=== PATIENT | male | born 1950 | race African-American/Black ===

== ENCOUNTER 2020-09-09 04:06 | Emergency (ER) | payer OTHER ==
[2020-09-09] MEDS ORDERED: ONDANSETRON *ODT* 4 MG TABLET SL ONE (04:27)
[2020-09-09] MEDS ORDERED: MAG HYDROX/AL HYDROX/SIMETH 30 ML UNIT-DOSE CUP PO ONE (04:27)
[2020-09-09] MEDS ORDERED: FAMOTIDINE 10 MG TABLET PO ONE (04:27)
[2020-09-09 04:31] VITALS: BP 160/75; PULSE 72; TEMP 98.8; BMI 26.6
[2020-09-09] MEDS ORDERED: FAMOTIDINE 10 MG TABLET ONE (04:38)
[2020-09-09] MEDS ORDERED: ONDANSETRON *ODT* 4 MG TABLET ONE (04:38)
[2020-09-09] MEDS ORDERED: MAG HYDROX/AL HYDROX/SIMETH 30 ML UNIT-DOSE CUP ONE (04:39)
== END 2020-09-09 04:59 | disposition home or self-care (01) ==
LOC: JER 04:06
DX: F11.20 Opioid dependence, uncomplicated (principal)
CPT/HCPCS: 99283-25; Q0162

== ENCOUNTER 2020-10-05 14:07 | Emergency (ER) | payer OTHER ==
[2020-10-05 14:29] VITALS: BP 133/79; PULSE 64; TEMP 98.8; BMI 26.5
== END 2020-10-05 16:47 | disposition left against medical advice (07) ==
LOC: JER 14:07
DX: F11.90 Opioid use, unspecified, uncomplicated (principal)
CPT/HCPCS: 99283-25

== ENCOUNTER 2022-11-21 10:39 | Inpatient (IN) | payer OTHER ==
[2022-11-21 11:20] LABS: BASO % 0.9 % (0-2.0); EOS % 0.8 % (0-4.5); HEMATOCRIT 36.1 % (35.4-49); HEMOGLOBIN 11.8 GM/dL (11.7-16.9); LYMPH % 9.4 % (8-40); MCHC 32.7 g/dl (32.0-35.9); MEAN CELL VOLUME 79.5 fl (80-96); MEAN PLT VOLUME 6.5 fl (7.5-11.1); MONO % 6.6 % (3.8-10.2); NEUT % 82.3 % (42.8-82.8); PLATELET COUNT 352 10^3/uL (134-434); RBC 4.54 M/mm3 (4.00-5.60); WHITE BLOOD COUNT 12.8 K/mm3 (4.0-10.0)
[2022-11-21 11:39] LABS: INR 1.09 (0.83-1.09); PROTHROMBIN TIME (PATIENT) 12.6 SEC (9.7-13.0)
[2022-11-21 11:42] LABS: ACTIVATED PTT 24.8 SECONDS (25.2-36.5)
[2022-11-21 11:47] LABS: POTASSIUM 4.9 mmol/L (3.5-5.1)
[2022-11-21 11:49] LABS: ALBUMIN 3.4 g/dl (3.4-5.0)
[2022-11-21 11:51] LABS: BLOOD UREA NITROGEN 53.2 mg/dL (7-18); CALCIUM 9.5 mg/dL (8.5-10.1); MAGNESIUM 2.5 mg/dL (1.8-2.4)
[2022-11-21 11:53] LABS: CREATININE 2.6 mg/dL (0.55-1.3)
[2022-11-21 11:54] LABS: BILIRUBIN,TOTAL 0.4 mg/dL (0.2-1)
[2022-11-21 11:58] LABS: N-TERMINAL BNP 1714.6 pg/ml (5-125)
[2022-11-21] MEDS ORDERED: ACETAMINOPHEN INJECTION 100 ML IVPB ONE (12:04)
[2022-11-21] MEDS ORDERED: ACETAMINOPHEN 1000 MG/100 ML BAG IVPB ONE (12:05)
[2022-11-21] MEDS ORDERED: HEPARIN NA (PORCINE) 5,000 UNITS/ML 1ML VIAL IVPUSH PRN ×2 (13:30)
[2022-11-21] MEDS ORDERED: HEPARIN INFUSION - 25,000 UNITS/500 ML INFUS.BAG IVPB ONE (14:22)
[2022-11-21] MEDS: HEPARIN INFUSION - 25,000 UNITS/500 ML INFUS.BAG IVPB SCH (14:30)
[2022-11-21] MEDS ORDERED: SODIUM CHLORIDE 1,000 ML IV SCH (16:00)
[2022-11-21] MEDS ORDERED: oxyCODONE HCL 5 MG TABLET ONE (17:21)
[2022-11-21] MEDS: oxyCODONE HCL 5 MG TABLET PO PRN ×2 (17:24→23:07)
[2022-11-21 17:39] LABS: EPI CELLS 3 /uL (0-25.1); HYALINE CASTS 0 /uL (0-3.1); PH,URINE 5.5 (5.0-8.0); URINE APPEARANCE CLEAR; URINE BACTERIA 70 /uL (0-1359); URINE BILIRUBIN NEGATIVE (NEGATIVE); URINE COLOR YELLOW; URINE GLUCOSE (UA) 3+ (NEGATIVE); URINE KETONE NEGATIVE (NEGATIVE); URINE LEUK ESTERASE NEGATIVE (NEGATIVE); URINE NITRITE NEGATIVE (NEGATIVE); URINE PROTEIN 2+ (NEGATIVE); URINE RBC 15 /uL (0-23.9); URINE WBC 4 /uL (0-25.8)
[2022-11-21 17:44] LABS: COCAINE, UR NEGATIVE (NEGATIVE); PHENCYCLIDINE,URINE NEGATIVE (NEGATIVE); URINE AMPHETAMINES NEGATIVE (NEGATIVE); URINE BARBITURATES NEGATIVE (NEGATIVE); URINE BENZODIAZEPINES NEGATIVE (NEGATIVE)
[2022-11-21 17:54] LABS: METHADONE, UR POSITIVE (NEGATIVE); OPIATES, URI POSITIVE (NEGATIVE)
[2022-11-21] MEDS ORDERED: NIFEdipine E.R 60 MG TABLET PO ONE (19:11)
[2022-11-21] MEDS ORDERED: NIFEdipine E.R. 30 MG TABLET PO ONE (19:11)
[2022-11-21] MEDS: NIFEdipine E.R. 90 MG TABLET PO SCH (19:14)
[2022-11-22] MEDS ORDERED: LIDOCAINE 5% TOPICAL PATCH TP ONE (03:30)
[2022-11-22] MEDS: oxyCODONE HCL 5 MG TABLET PO PRN ×3 (05:46→23:21)
[2022-11-22 08:45] LABS: BASO % 0.8 % (0-2.0); EOS % 0.2 % (0-4.5); HEMATOCRIT 35.7 % (35.4-49); HEMOGLOBIN 11.6 GM/dL (11.7-16.9); LYMPH % 10.3 % (8-40); MCH 25.9 pg (25.7-33.7); MCHC 32.6 g/dl (32.0-35.9); MEAN CELL VOLUME 79.5 fl (80-96); MONO % 5.2 % (3.8-10.2); NEUT % 83.5 % (42.8-82.8); PLATELET COUNT 419 10^3/uL (134-434); RBC 4.49 M/mm3 (4.00-5.60); RDW 15.6 % (11.9-15.9); WHITE BLOOD COUNT 11.7 K/mm3 (4.0-10.0)
[2022-11-22] MEDS: NIFEdipine E.R. 90 MG TABLET PO SCH (10:40)
[2022-11-22 12:17] LABS: POTASSIUM 4.6 mmol/L (3.5-5.1)
[2022-11-22 13:14] LABS: MAGNESIUM 2.4 mg/dL (1.8-2.4)
[2022-11-22 13:15] LABS: BLOOD UREA NITROGEN 45.4 mg/dL (7-18)
[2022-11-22 13:16] LABS: ALBUMIN 3.2 g/dl (3.4-5.0)
[2022-11-22 13:18] LABS: CREATININE 2.3 mg/dL (0.55-1.3); PHOSPHOROUS 4.3 mg/dL (2.5-4.9)
[2022-11-22 13:20] LABS: BILIRUBIN,TOTAL 0.5 mg/dL (0.2-1); TOT PROT 7.2 g/dl (6.4-8.2)
[2022-11-22] MEDS: HEPARIN INFUSION - 25,000 UNITS/500 ML INFUS.BAG IVPB SCH ×2 (13:58→17:07)
[2022-11-22] MEDS ORDERED: LIDOCAINE PATCH REMOVAL MC ONE (15:00)
[2022-11-22] MEDS ORDERED: FENTANYL CITRATE/PF 50 MCG/ML VIAL ONE (15:54)
[2022-11-22] MEDS ORDERED: FENTANYL CITRATE/PF 50 MCG/ML VIAL IVPUSH ONE ×2 (16:45→19:00)
[2022-11-22] MEDS ORDERED: SODIUM CHLORIDE 500 ML IV ONE (16:45)
[2022-11-22] MEDS ORDERED: ACETAMINOPHEN 1000 MG/100 ML BAG IVPB ONE (16:55)
[2022-11-23] MEDS: oxyCODONE HCL 5 MG TABLET PO PRN ×2 (04:02→17:28)
[2022-11-23] MEDS ORDERED: methaDONE HCL 10 MG TABLET PO SCH (06:00)
[2022-11-23 08:02] LABS: HEMOGLOBIN 11.7 GM/dL (11.7-16.9); MCH 26.2 pg (25.7-33.7); MCHC 33.4 g/dl (32.0-35.9); MEAN CELL VOLUME 78.5 fl (80-96); MEAN PLT VOLUME 6.5 fl (7.5-11.1); PLATELET COUNT 463 10^3/uL (134-434); RBC 4.46 M/mm3 (4.00-5.60); RDW 15.4 % (11.9-15.9); WHITE BLOOD COUNT 11.8 K/mm3 (4.0-10.0)
[2022-11-23 08:09] LABS: INR 1.05 (0.83-1.09); PROTHROMBIN TIME (PATIENT) 12.2 SEC (9.7-13.0)
[2022-11-23 08:22] LABS: POTASSIUM 4.7 mmol/L (3.5-5.1)
[2022-11-23 08:29] LABS: PHOSPHOROUS 4.3 mg/dL (2.5-4.9)
[2022-11-23 08:30] LABS: ALBUMIN 3.1 g/dl (3.4-5.0); BILIRUBIN,TOTAL 0.4 mg/dL (0.2-1); TOT PROT 7.4 g/dl (6.4-8.2)
[2022-11-23 08:33] LABS: BLOOD UREA NITROGEN 42.2 mg/dL (7-18); CREATININE 2.2 mg/dL (0.55-1.3)
[2022-11-23 08:34] LABS: CALCIUM 9.1 mg/dL (8.5-10.1)
[2022-11-23 08:35] LABS: MAGNESIUM 2.3 mg/dL (1.8-2.4)
[2022-11-23] MEDS ORDERED: PIPERACILLIN/TAZOB 3.375 GM 3.375 GM in DEXTROSE 5%-WATER - 50 ML IVPB SCH (09:00)
[2022-11-23] MEDS: NIFEdipine E.R. 90 MG TABLET PO SCH (09:45)
[2022-11-23] MEDS ORDERED: ONDANSETRON 4 MG/2 ML VIAL IVPUSH PRN ×2 (11:54→13:44)
[2022-11-23] MEDS ORDERED: MIDAZOLAM HCL 2 MG/2 ML SINGLE DOSE VIAL ONE (12:23)
[2022-11-23] MEDS ORDERED: PROPOFOL 20 ML ONE (12:23)
[2022-11-23] MEDS ORDERED: LIDOCAINE HCL/PF 2% SDV 5ML VIAL ONE (12:23)
[2022-11-23] MEDS ORDERED: HYDROmorphone HCl 2 MG/ML VIAL ONE (12:54)
[2022-11-23] MEDS ORDERED: LIDOCAINE HCL 1%, 10 MG/ML (20ML VIAL) INF ONE ×3 (12:58)
[2022-11-23] MEDS ORDERED: BUPIVACAINE HCL/PF 0.5% (5 MG/ML) 30 ML VIAL IJ ONE ×3 (12:58)
[2022-11-23] MEDS ORDERED: ONDANSETRON 4 MG/2 ML VIAL ONE (13:03)
[2022-11-23] MEDS ORDERED: HEPARIN NA (PORCINE) 5,000 UNITS/ML 1ML VIAL IVPUSH PRN ×3 (13:44)
[2022-11-23] MEDS: LACTATED RINGERS SOLUTION 1,000 ML IV SCH (16:02)
[2022-11-23] MEDS: HEPARIN INFUSION - 25,000 UNITS/500 ML INFUS.BAG IVPB SCH (17:34)
[2022-11-23] MEDS ORDERED: ACETAMINOPHEN 1000 MG/100 ML BAG IVPB ONE (20:52)
[2022-11-24] MEDS: HEPARIN NA (PORCINE) 5,000 UNITS/ML 1ML VIAL IVPUSH PRN ×2 (00:52→16:31)
[2022-11-24] MEDS: oxyCODONE HCL 5 MG TABLET PO PRN ×2 (00:54→14:34)
[2022-11-24] MEDS: LACTATED RINGERS SOLUTION 1,000 ML IV SCH ×3 (06:09→19:44)
[2022-11-24] MEDS: methaDONE HCL 10 MG TABLET PO SCH (06:11)
[2022-11-24 07:25] LABS: HEMATOCRIT 32.4 % (35.4-49); HEMOGLOBIN 10.8 GM/dL (11.7-16.9); MCH 26.1 pg (25.7-33.7); MCHC 33.4 g/dl (32.0-35.9); MEAN CELL VOLUME 78.1 fl (80-96); MEAN PLT VOLUME 6.4 fl (7.5-11.1); PLATELET COUNT 436 10^3/uL (134-434); RBC 4.14 M/mm3 (4.00-5.60); RDW 15.3 % (11.9-15.9); WHITE BLOOD COUNT 11.2 K/mm3 (4.0-10.0)
[2022-11-24 08:37] LABS: ALBUMIN 2.8 g/dl (3.4-5.0); BILIRUBIN,TOTAL 0.4 mg/dL (0.2-1); BLOOD UREA NITROGEN 33.1 mg/dL (7-18); CALCIUM 8.8 mg/dL (8.5-10.1); CREATININE 1.9 mg/dL (0.55-1.3); MAGNESIUM 2.1 mg/dL (1.8-2.4); PHOSPHOROUS 3.8 mg/dL (2.5-4.9); POTASSIUM 4.4 mmol/L (3.5-5.1); TOT PROT 6.6 g/dl (6.4-8.2)
[2022-11-24] MEDS: NIFEdipine E.R. 90 MG TABLET PO SCH (09:31)
[2022-11-24] MEDS: HEPARIN INFUSION - 25,000 UNITS/500 ML INFUS.BAG IVPB SCH ×2 (09:59→14:27)
[2022-11-24] MEDS: POLYETHYLENE GLYCOL (HEALTHYLAX) 3350 17 GM PACKET PO SCH (14:36)
[2022-11-24] MEDS ORDERED: ACETAMINOPHEN 1000 MG/100 ML BAG IVPB ONE (18:39)
[2022-11-25] MEDS: oxyCODONE HCL 5 MG TABLET PO PRN ×3 (01:14→14:56)
[2022-11-25] MEDS ORDERED: ACETAMINOPHEN 1000 MG/100 ML BAG IVPB ONE (04:38)
[2022-11-25] MEDS: methaDONE HCL 10 MG TABLET PO SCH (05:53)
[2022-11-25 07:53] LABS: HEMOGLOBIN 10.5 GM/dL (11.7-16.9); MCH 25.3 pg (25.7-33.7); MCHC 31.8 g/dl (32.0-35.9); MEAN CELL VOLUME 79.4 fl (80-96); MEAN PLT VOLUME 6.5 fl (7.5-11.1); PLATELET COUNT 461 10^3/uL (134-434); RBC 4.16 M/mm3 (4.00-5.60); RDW 15.5 % (11.9-15.9)
[2022-11-25 07:59] LABS: POTASSIUM 4.1 mmol/L (3.5-5.1)
[2022-11-25 08:03] LABS: CALCIUM 8.6 mg/dL (8.5-10.1)
[2022-11-25 08:04] LABS: ALBUMIN 2.8 g/dl (3.4-5.0); BLOOD UREA NITROGEN 24.4 mg/dL (7-18); MAGNESIUM 1.8 mg/dL (1.8-2.4)
[2022-11-25 08:07] LABS: BILIRUBIN,TOTAL 0.4 mg/dL (0.2-1); CREATININE 1.6 mg/dL (0.55-1.3); PHOSPHOROUS 3.4 mg/dL (2.5-4.9); TOT PROT 6.4 g/dl (6.4-8.2)
[2022-11-25] MEDS: NIFEdipine E.R. 90 MG TABLET PO SCH (09:38)
[2022-11-25] MEDS: POLYETHYLENE GLYCOL (HEALTHYLAX) 3350 17 GM PACKET PO SCH (09:39)
[2022-11-25] MEDS: HEPARIN INFUSION - 25,000 UNITS/500 ML INFUS.BAG IVPB SCH ×2 (09:41→14:22)
[2022-11-25] MEDS: LACTATED RINGERS SOLUTION 1,000 ML IV SCH ×2 (09:47→14:55)
[2022-11-25] MEDS ORDERED: NALOXONE HCL 0.4 MG/ML VIAL ONE (21:23)
[2022-11-25] MEDS ORDERED: NALOXONE HCL 0.4 MG/ML VIAL IVPUSH PRN (21:27)
[2022-11-26] MEDS: methaDONE HCL 10 MG TABLET PO SCH (06:04)
[2022-11-26] MEDS: LACTATED RINGERS SOLUTION 1,000 ML IV SCH ×2 (06:04→14:40)
[2022-11-26 07:56] LABS: HEMATOCRIT 31.8 % (35.4-49); HEMOGLOBIN 10.2 GM/dL (11.7-16.9); MCH 25.8 pg (25.7-33.7); MCHC 31.9 g/dl (32.0-35.9); MEAN CELL VOLUME 80.6 fl (80-96); MEAN PLT VOLUME 6.6 fl (7.5-11.1); PLATELET COUNT 463 10^3/uL (134-434); RBC 3.95 M/mm3 (4.00-5.60); WHITE BLOOD COUNT 12.1 K/mm3 (4.0-10.0)
[2022-11-26 08:11] LABS: POTASSIUM 4.4 mmol/L (3.5-5.1)
[2022-11-26 08:16] LABS: BLOOD UREA NITROGEN 23.4 mg/dL (7-18); CALCIUM 8.9 mg/dL (8.5-10.1)
[2022-11-26 08:18] LABS: ALBUMIN 2.8 g/dl (3.4-5.0); MAGNESIUM 1.7 mg/dL (1.8-2.4)
[2022-11-26 08:21] LABS: BILIRUBIN,TOTAL 0.5 mg/dL (0.2-1); CREATININE 1.7 mg/dL (0.55-1.3); TOT PROT 6.6 g/dl (6.4-8.2)
[2022-11-26] MEDS: HEPARIN INFUSION - 25,000 UNITS/500 ML INFUS.BAG IVPB SCH ×2 (08:35→14:40)
[2022-11-26] MEDS: NIFEdipine E.R. 90 MG TABLET PO SCH (09:53)
[2022-11-26] MEDS: POLYETHYLENE GLYCOL (HEALTHYLAX) 3350 17 GM PACKET PO SCH (09:53)
[2022-11-26] MEDS ORDERED: ACETAMINOPHEN 1000 MG/100 ML BAG IVPB ONE (13:04)
[2022-11-26] MEDS ORDERED: MAGNESIUM SULF 50% (8.12 MEQ/2 ML-1 GM VIAL) IVPB ONE (18:30)
[2022-11-26] MEDS: oxyCODONE HCL 5 MG TABLET PO PRN (21:46)
[2022-11-27] MEDS: LACTATED RINGERS SOLUTION 1,000 ML IV SCH ×2 (05:12→17:04)
[2022-11-27] MEDS: methaDONE HCL 10 MG TABLET PO SCH (05:12)
[2022-11-27] MEDS: oxyCODONE HCL 5 MG TABLET PO PRN ×2 (05:42→18:49)
[2022-11-27 07:10] LABS: HEMATOCRIT 33.8 % (35.4-49); HEMOGLOBIN 11.1 GM/dL (11.7-16.9); MCH 25.7 pg (25.7-33.7); MCHC 32.9 g/dl (32.0-35.9); MEAN PLT VOLUME 6.1 fl (7.5-11.1); PLATELET COUNT 486 10^3/uL (134-434); RBC 4.34 M/mm3 (4.00-5.60); RDW 15.6 % (11.9-15.9); WHITE BLOOD COUNT 12.7 K/mm3 (4.0-10.0)
[2022-11-27 07:17] LABS: INR 1.09 (0.83-1.09); PROTHROMBIN TIME (PATIENT) 12.6 SEC (9.7-13.0)
[2022-11-27 07:45] LABS: POTASSIUM 4.4 mmol/L (3.5-5.1)
[2022-11-27 07:50] LABS: CALCIUM 8.7 mg/dL (8.5-10.1)
[2022-11-27 07:52] LABS: ALBUMIN 2.9 g/dl (3.4-5.0); BLOOD UREA NITROGEN 23.5 mg/dL (7-18); MAGNESIUM 2.4 mg/dL (1.8-2.4)
[2022-11-27 07:54] LABS: CREATININE 1.6 mg/dL (0.55-1.3)
[2022-11-27 07:55] LABS: BILIRUBIN,TOTAL 0.4 mg/dL (0.2-1); TOT PROT 6.6 g/dl (6.4-8.2)
[2022-11-27 07:59] LABS: PHOSPHOROUS 3.7 mg/dL (2.5-4.9)
[2022-11-27] MEDS: POLYETHYLENE GLYCOL (HEALTHYLAX) 3350 17 GM PACKET PO SCH (10:05)
[2022-11-27] MEDS: NIFEdipine E.R. 90 MG TABLET PO SCH (10:05)
[2022-11-27] MEDS ORDERED: ACETAMINOPHEN 1000 MG/100 ML BAG IVPB ONE (10:07)
[2022-11-28] MEDS: oxyCODONE HCL 5 MG TABLET PO PRN ×3 (05:30→22:31)
[2022-11-28] MEDS: methaDONE HCL 10 MG TABLET PO SCH (05:31)
[2022-11-28] MEDS: POLYETHYLENE GLYCOL (HEALTHYLAX) 3350 17 GM PACKET PO SCH (09:25)
[2022-11-28] MEDS: NIFEdipine E.R. 90 MG TABLET PO SCH (09:26)
[2022-11-28] MEDS: LACTATED RINGERS SOLUTION 1,000 ML IV SCH ×2 (09:29→17:43)
[2022-11-28 09:35] LABS: HEMATOCRIT 33.3 % (35.4-49); MCH 25.9 pg (25.7-33.7); MCHC 33.1 g/dl (32.0-35.9); MEAN CELL VOLUME 78.4 fl (80-96); MEAN PLT VOLUME 6.4 fl (7.5-11.1); PLATELET COUNT 506 10^3/uL (134-434); RBC 4.25 M/mm3 (4.00-5.60); RDW 15.8 % (11.9-15.9); WHITE BLOOD COUNT 13.5 K/mm3 (4.0-10.0)
[2022-11-28 10:08] LABS: POTASSIUM 4.5 mmol/L (3.5-5.1)
[2022-11-28 10:11] LABS: BLOOD UREA NITROGEN 23.9 mg/dL (7-18); MAGNESIUM 2.3 mg/dL (1.8-2.4)
[2022-11-28 10:14] LABS: CREATININE 1.6 mg/dL (0.55-1.3); PHOSPHOROUS 4.1 mg/dL (2.5-4.9)
[2022-11-28 10:15] LABS: BILIRUBIN,TOTAL 0.5 mg/dL (0.2-1)
[2022-11-28 10:16] LABS: TOT PROT 6.9 g/dl (6.4-8.2)
[2022-11-28] MEDS: LIDOCAINE 5% TOPICAL PATCH TP SCH (17:39)
[2022-11-28] MEDS: APIXABAN 5 MG TABLET PO SCH (22:31)
[2022-11-28] MEDS: LIDOCAINE PATCH REMOVAL MC SCH (22:34)
[2022-11-29] MEDS: LACTATED RINGERS SOLUTION 1,000 ML IV SCH (05:42)
[2022-11-29] MEDS: methaDONE HCL 10 MG TABLET PO SCH (05:43)
[2022-11-29 08:31] LABS: HEMATOCRIT 32.9 % (35.4-49); MCH 25.8 pg (25.7-33.7); MCHC 33.3 g/dl (32.0-35.9); MEAN CELL VOLUME 77.5 fl (80-96); MEAN PLT VOLUME 6.2 fl (7.5-11.1); PLATELET COUNT 532 10^3/uL (134-434); RBC 4.25 M/mm3 (4.00-5.60); RDW 15.7 % (11.9-15.9)
[2022-11-29] MEDS: NIFEdipine E.R. 90 MG TABLET PO SCH (09:59)
[2022-11-29] MEDS: APIXABAN 5 MG TABLET PO SCH ×2 (09:59→22:08)
[2022-11-29] MEDS: POLYETHYLENE GLYCOL (HEALTHYLAX) 3350 17 GM PACKET PO SCH (10:02)
[2022-11-29] MEDS: LIDOCAINE 5% TOPICAL PATCH TP SCH (10:03)
[2022-11-29] MEDS: LIDOCAINE PATCH REMOVAL MC SCH (22:10)
[2022-11-29 22:56] VITALS: BMI 24.4
[2022-11-30 07:55] LABS: POTASSIUM 4.4 mmol/L (3.5-5.1)
[2022-11-30 08:02] LABS: BLOOD UREA NITROGEN 21.9 mg/dL (7-18)
[2022-11-30 08:04] LABS: BILIRUBIN,TOTAL 0.5 mg/dL (0.2-1); CREATININE 1.5 mg/dL (0.55-1.3); PHOSPHOROUS 3.8 mg/dL (2.5-4.9)
[2022-11-30 08:05] LABS: HEMATOCRIT 35.4 % (35.4-49); HEMOGLOBIN 11.3 GM/dL (11.7-16.9); MCH 25.6 pg (25.7-33.7); MCHC 31.8 g/dl (32.0-35.9); MEAN CELL VOLUME 80.7 fl (80-96); MEAN PLT VOLUME 6.6 fl (7.5-11.1); PLATELET COUNT 547 10^3/uL (134-434); RBC 4.39 M/mm3 (4.00-5.60); RDW 15.7 % (11.9-15.9); WHITE BLOOD COUNT 14.7 K/mm3 (4.0-10.0)
[2022-11-30] MEDS: NIFEdipine E.R. 90 MG TABLET PO SCH (09:51)
[2022-11-30] MEDS: APIXABAN 5 MG TABLET PO SCH (09:51)
[2022-11-30] MEDS: POLYETHYLENE GLYCOL (HEALTHYLAX) 3350 17 GM PACKET PO SCH (09:53)
[2022-11-30] MEDS: LIDOCAINE 5% TOPICAL PATCH TP SCH (09:53)
[2022-11-30 15:35] VITALS: BP 148/69; PULSE 78; RESP 22; TEMP 98.2
== END 2022-11-30 16:59 | disposition home or self-care (01) | DRG 312 ==
LOC: JER 10:39 → JERBED 14:28 → J4W 21:02
PROVIDERS: ADMIT Internal Medicine; ATTEND Internal Medicine
PROC: 06H03DZ Insertion of Intraluminal Device into Inferior Vena Cava, Percutaneous Approach (ICD-10-PCS; principal; 2022-11-22)
PROC: 0BBG3ZX Excision of Left Upper Lung Lobe, Percutaneous Approach, Diagnostic (ICD-10-PCS; 2022-11-27)
DX: R55 Syncope and collapse (principal); I82.431 Acute embolism and thrombosis of right popliteal vein; C34.12 Malignant neoplasm of upper lobe, left bronchus or lung; S22.41XA Multiple fractures of ribs, right side, initial encounter for closed fracture; F11.20 Opioid dependence, uncomplicated; N17.9 Acute kidney failure, unspecified; E86.0 Dehydration; R91.8 Other nonspecific abnormal finding of lung field; R91.1 Solitary pulmonary nodule; W18.30XA Fall on same level, unspecified, initial encounter; Y92.091 Bathroom in other non-institutional residence as the place of occurrence of the external cause; R59.0 Localized enlarged lymph nodes; I12.9 Hypertensive chronic kidney disease with stage 1 through stage 4 chronic kidney disease, or unspecified chronic kidney disease; N18.9 Chronic kidney disease, unspecified
CPT/HCPCS: 32408; 36415; 37191; 70450-TC; 71045-TC-FY; 71046-TC-FY; 71250-TC; 72125-TC; 74176-TC; 76775-TC; 77012-TC; 80053; 80307; 81003; 82272; 82436; 82570; 82962; 83735; 83880; 84100; 84133; 84156; 84300; 84484; 85025; 85027; 85610; 85730; 86850; 86900; 86901; 87086; 88305-TC; 88307-TC; 88341-TC; 93005; 93010; 93306-TC; 93308; 93970; 93970-TC; 94760; 97116-GP; 97162-GP; 99285-25; C1769; C1880; J1644; Q9967